=== PATIENT | female | born 1945 | race Caucasian/White ===

== ENCOUNTER 2019-05-18 23:25 | Inpatient (IN) | payer MEDICARE ==
[~2019-05-18] VITALS: Ht 167.6 cm; Wt 96.7 kg
--- NOTE | 2019-05-18 23:35 | NUR ---
PT BIB EMS WITH C/O CP EARLIER TONIGHT, NO CP AT THIS TIME. PT REPORTS DIFFUSE CP ACROSS CHEST TO BACK DESCRIBED SQUEEZING OR CRUSHING, PT DENIES SOB OR ANY OTHER C/O. HISTORY OF SAME. STATES "IT JUST WENT AWAY AFTER ABOUT 30 MIN". PT CONNECTED TO ALL MONTIORING, CALL LIGHT WITHIN REACH, ALL SAFETY MEASURES IN PLACE. FAMILY AT BS FOR SUPPORT. ERP IN ROOM TO EVAL PT. EKG PERFORMED.
[2019-05-18] MEDS ORDERED: PLEASE ENTER ALLERGIES MC SCH (23:45)
[2019-05-18 23:50] LABS: BASOPHILS # (AUTO) 0.05 x10^3/uL (0-0.1); BASOPHILS % (AUTO) 1 % (0-1); EOSINOPHILS # (AUTO) 0.49 x10^3/uL (0-0.4); EOSINOPHILS % (AUTO) 7 % (1-7); LYMPHOCYTES # (AUTO) 1.96 x10^3/uL (1-3.4); LYMPHOCYTES % (AUTO) 28 % (22-44); MD NO; MEAN CORPUSCULAR HEMOGLOBIN 31.8 pg (27.0-34.8); MEAN CORPUSCULAR HGB CONC 33.5 g/dL (32.4-35.8); MEAN CORPUSCULAR VOLUME 95.1 fL (80-100); MEAN PLATELET VOLUME 7.7 fL (7.4-10.4); MONOCYTES # (AUTO) 0.43 x10^3/uL (0.2-0.8); MONOCYTES % (AUTO) 6 % (2-9); NEUTROPHILS # (AUTO) 4.04 x10^3/uL (1.8-6.8); NEUTROPHILS % (AUTO) 58 % (42-75); PLATELET COUNT 277 x10^3/uL (130-400); RED BLOOD COUNT 4.51 x10^6/uL (3.82-5.3); RED CELL DISTRIBUTION WIDTH 13.7 % (9.6-15.2)
[2019-05-19] VITALS (12 sets, daily range): BP systolic 105–193; BP diastolic 65–97
[2019-05-19 00:02] LABS: ALBUMIN 3.7 g/dL (3.4-5.0); ANION GAP 6 mmol/L (5-15); CALCIUM 8.9 mg/dL (8.5-10.1); CHLORIDE 107 mmol/L (98-107); CREATININE 1.14 mg/dL (0.55-1.02)
[2019-05-19 00:06] LABS: TROPONIN I 0.041 ng/mL (0.000-0.045)
[2019-05-19] MEDS ORDERED: NITROGLYCERIN SINGLE TAB 0.4 MG SL ONE (00:25)
[2019-05-19] MEDS: NITROGLYCERIN SINGLE TAB 0.4 MG SL ONE ×2 (00:28)
--- NOTE | 2019-05-19 00:36 | NUR ---
PT GIVEN NITRO FOR HTN. PT BP IMPROVED. PT DENIES ANY C/O AT THIS TIME.
--- NOTE | 2019-05-19 01:03 | NUR ---
PT AMBULATED PER MD ORDER, WITH STEADY GAIT. PT TOLERATED WELL, DENIES CP OR ANY C/O.
--- NOTE | 2019-05-19 01:07 | NUR ---
PT TO ROOM, ALL MONITORING RECONNECTED. CALL LIGHT WITHIN REACH, ALL SAFETY MEASURES IN PLACE. FAMILY AT BS FOR SUPPORT. ERP INFORMED OF SUCCESSFUL AMBULATION.
[2019-05-19] MEDS ORDERED: LEVO112T4 PO (01:37)
[2019-05-19] MEDS ORDERED: PARO20TA4 PO (01:37)
[2019-05-19] MEDS ORDERED: HYDR25TA6 PO (01:37)
[2019-05-19] MEDS ORDERED: NITROGLYCERIN OINT 2%, 1GM TP ONE ×2 (01:54→02:00)
[2019-05-19] MEDS ORDERED: ACETAMINOPHEN 325 MG TABLET PO PRN (02:00)
[2019-05-19] MEDS ORDERED: ONDANSETRON ODT 4 MG PO PRN (02:00)
--- NOTE | 2019-05-19 02:11 | NUR ---
REPORT TO [facility]. FLOOR READY FOR PT. TRANSPORT.
[2019-05-19] MEDS: hydrALAzine 20 MG/ML, 1ML IV PRN ×2 (03:03→17:30)
[2019-05-19] MEDS: ASPIRIN 81 MG TABLET EC PO SCH (05:00)
[2019-05-19 07:30] LABS: CHOL/HDL RATIO 3.1; CHOLESTEROL, TOTAL 233 mg/dL (140-239); HDL CHOL % 32 % (28-40); HDL CHOLESTEROL (DIRECT) 74 mg/dL (40-60); LDL CHOLESTEROL,CALCULATED 127 mg/dL (54-169); LDL/HDL RATIO 1.7 (0.5-3.0); TRIGLYCERIDES 161 mg/dL (50-200); TROPONIN I 0.035 ng/mL (0.000-0.045); VLDL CHOLESTEROL 32 mg/dL (0-25)
[2019-05-19] MEDS ORDERED: SODIUM CHLORIDE 0.9% 1,000 ML IV SCH (08:00)
[2019-05-19] MEDS ORDERED: HYDROCHLOROTHIAZIDE 25 MG TABLET PO SCH (09:00)
[2019-05-19] MEDS ORDERED: LEVOTHYROXINE 112 MCG TABLET PO SCH (09:00)
[2019-05-19] MEDS: PAROXETINE 20 MG TABLET PO SCH (09:57)
[2019-05-19] MEDS: AMLODIPINE 5 MG TABLET PO SCH ×2 (09:57→20:56)
[2019-05-19] MEDS ORDERED: REGADENOSON 0.4 MG/5 ML SYRINGE ONE (11:00)
[2019-05-19] MEDS: HEPARIN 5,000 UNITS/ML, 1ML SQ SCH (16:09)
[2019-05-19] MEDS ORDERED: ASA/APAP/ CAFFEINE TABLET PO PRN (16:30)
[2019-05-19] MEDS ORDERED: ATORVASTATIN 40 MG TABLET PO SCH (21:00)
[2019-05-20 00:59] VITALS: BP 152/71
[2019-05-20] MEDS: HEPARIN 5,000 UNITS/ML, 1ML SQ SCH ×2 (01:03→09:16)
[2019-05-20 06:05] LABS: BASOPHILS # (AUTO) 0.07 x10^3/uL (0-0.1); BASOPHILS % (AUTO) 1 % (0-1); EOSINOPHILS # (AUTO) 0.34 x10^3/uL (0-0.4); EOSINOPHILS % (AUTO) 6 % (1-7); LYMPHOCYTES # (AUTO) 1.42 x10^3/uL (1-3.4); LYMPHOCYTES % (AUTO) 25 % (22-44); MD NO; MEAN CORPUSCULAR HEMOGLOBIN 31.5 pg (27.0-34.8); MEAN CORPUSCULAR HGB CONC 33.2 g/dL (32.4-35.8); MEAN CORPUSCULAR VOLUME 94.7 fL (80-100); MEAN PLATELET VOLUME 7.8 fL (7.4-10.4); MONOCYTES # (AUTO) 0.44 x10^3/uL (0.2-0.8); MONOCYTES % (AUTO) 8 % (2-9); NEUTROPHILS # (AUTO) 3.44 x10^3/uL (1.8-6.8); NEUTROPHILS % (AUTO) 60 % (42-75); PLATELET COUNT 233 x10^3/uL (130-400); RED BLOOD COUNT 4.37 x10^6/uL (3.82-5.3); RED CELL DISTRIBUTION WIDTH 13.6 % (9.6-15.2)
[2019-05-20 06:16] LABS: ALANINE AMINOTRANSFERASE 17 U/L (12-78); ALBUMIN 3.4 g/dL (3.4-5.0); ANION GAP 6 mmol/L (5-15); CALCIUM 8.8 mg/dL (8.5-10.1); CHLORIDE 109 mmol/L (98-107)
[2019-05-20 06:19] LABS: ALKALINE PHOSPHATASE 73 U/L (45-117); BILIRUBIN,TOTAL 0.7 mg/dL (0.2-1.0); CREATININE 1.01 mg/dL (0.55-1.02); TOTAL PROTEIN 6.8 g/dL (6.4-8.2)
[2019-05-20] MEDS: ASPIRIN 81 MG TABLET EC PO SCH (06:39)
[2019-05-20 06:49] VITALS: BP 147/75
[2019-05-20] MEDS ORDERED: LEVOTHYROXINE 125 MCG TABLET PO SCH (09:00)
[2019-05-20] MEDS: AMLODIPINE 5 MG TABLET PO SCH (09:15)
[2019-05-20] MEDS: PAROXETINE 20 MG TABLET PO SCH (09:15)
[2019-05-20] MEDS ORDERED: LEVO125T PO (10:45)
[2019-05-20] MEDS ORDERED: AMLO-150 PO (10:45)
== END 2019-05-20 13:00 | disposition home or self-care (01) | DRG 305 ==
LOC: ED 05-19 00:19 → EDIP 05-19 01:32 → 5SO 05-19 02:48
PROVIDERS: ADMIT Internal Medicine; ATTEND Internal Medicine
DX: I16.0 Hypertensive urgency (principal); N17.9 Acute kidney failure, unspecified; F32.9 Major depressive disorder, single episode, unspecified; E03.9 Hypothyroidism, unspecified; E66.9 Obesity, unspecified; I44.7 Left bundle-branch block, unspecified; I12.9 Hypertensive chronic kidney disease with stage 1 through stage 4 chronic kidney disease, or unspecified chronic kidney disease; N18.9 Chronic kidney disease, unspecified; Z96.641 Presence of right artificial hip joint
CPT/HCPCS: 0399T; 36415; 71045; 78452; 80048; 80053; 80061; 82040; 84443; 84484; 85025; 85379; 93005; 93017; 93306; G0378; J1644; J2785; A9502; J0360; J7030

== ENCOUNTER → 2020-10-18 | Outpatient (CLI) | payer MEDICARE ==
[~2020-10-18] MED LIST: AMLO-150 PO; HYDR25TA6 PO; LEVO112T4 PO; LEVO125T PO; PARO20TA4 PO
== END | disposition home or self-care (01) ==
LOC: CFH 10:14
PROVIDERS: ATTEND Family Medicine
DX: Z12.31 Encounter for screening mammogram for malignant neoplasm of breast (principal)
CPT/HCPCS: 77067